=== PATIENT | male | born 1940 | race Caucasian/White ===

== ENCOUNTER 2016-09-06 09:50 | Emergency (ER) | payer MEDICARE, OTHER ==
[~2016-09-06 09:50] MED LIST: HYDR200T42 PO; NAPR-503 PO; PARO20TA PO; PRED5TAB PO
[2016-09-06] MEDS ORDERED: MORPHINE SULFATE 4 MG/ML INJ IV PUSH ONE (10:00)
[2016-09-06] MEDS ORDERED: RESP: ALBUTEROL 2.5 MG/IPRATROPIUM 0.5 MG NEB (SCH) NEB ONE (10:00)
[2016-09-06] MEDS ORDERED: LORazepam 2 MG/ML VIAL IV PUSH ONE (10:00)
[2016-09-06] MEDS ORDERED: methylPREDNISolone SOD SUCC 125 MG/2 ML VIAL IV PUSH ONE (10:00)
--- NOTE | 2016-09-06 10:07 | PD ---
HPI Chief Complaint: GI Complaint Time Seen by Provider: 09:59 Travel History International Travel<30 days: No Contact w/Intl Traveler<30days: No History of Present Illness HPI This is a 76-year-old male with a history of non-small cell lung cancer currently on hospice care, presenting to the emergency department with increasing cough with productive sputum and some blood that started this morning. He's been increasingly short of breath, constant, severe, associated with green foul-smelling sputum with some blood in it. His reports that over the past weeks his whole room is started to smell. She says she thought he was choking on his sputum this morning. He called his hospice nurse and they told her to give him some Ativan and some breathing treatments. She tried that but he didn't get any better so she brought him to the emergency department. 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) Neurologic: No Psychiatric: No Reproductive: No Respiratory: No Thyroid Disease: No Past Surgical History Abdominal Surgery: Yes (hernia repair) AICD: No Cardiac Surgery: No Ear Surgery: No Endocrine Surgery: No Eye Surgery: Yes (RT CATARACT) Genitourinary Surgery: No Joint Replacement: No Oral Surgery: Yes (TONSILLECTOMY) Pacemaker: No Thoracic Surgery: No Social History Alcohol Use: No Tobacco Use: No Substance Use: No Allergies-Medications (Allergen,Severity, Reaction): Coded Allergies: No Known Allergies (Verified , 09/06/16) Reported Meds & Prescriptions Reported Meds & Active Scripts Active Active Prescriptions or Reported Medications Unobtainable Review of Systems ROS Limitations: Clinical Condition Physical Exam Narrative GENERAL: Frail, chronically ill-appearing SKIN: Dry with skin tenting HEAD: Atraumatic. Normocephalic. EYES: Pupils equal and round. No injection or drainage. ENT: Dry mucous membranes NECK: Trachea midline. CARDIOVASCULAR: Regular rate and rhythm. No murmur appreciated. RESPIRATORY: Coarse breath sounds bilaterally with a prolonged expiratory phase , mild tachypnea GASTROINTESTINAL: Abdomen soft, non-tender, nondistended. MUSCULOSKELETAL: No obvious deformities. NEUROLOGICAL: Awake and alert. No obvious cranial nerve deficits. Moving all extremities. PSYCHIATRIC: Appropriate mood and affect; insight and judgment normal. Data Data Last Documented VS Vital Signs Date Time Temp Pulse Resp B/P Pulse Ox O2 Delivery O2 Flow Rate FiO2 09/06/16 10:42 99.1 136 24 90/52 86 Nasal Cannula 2 Orders Methylprednisolone So Succ Inj (Solumedr (09/06/16 10:00) Albuterol-Ipratropium Neb (Duoneb Neb) (09/06/16 10:00) Lorazepam Inj (Ativan Inj) (09/06/16 10:00) Morphine Inj (Morphine Inj) (09/06/16 10:00) Albuterol-Ipratropium Neb (Duoneb Neb) (09/06/16 10:30) Chest, Single Ap (09/06/16 ) Lidocaine Pf 2% Neb (Lidocaine Pf 2% Neb (09/06/16 10:45) MDM Medical Decision Making Medical Screen Exam Complete: Yes Emergency Medical Condition: Yes Medical Record Reviewed: Yes (patient has a history of non-small cell lung cancer and is currently on hospice care) Interpretation(s) Temperature is 99.1 Tachycardic, tachypneic, hypoxic Chest x-ray: Bibasilar patchiness unresponsive with atelectasis or pneumonia, cavitary lesion with small fluid level Differential Diagnosis Cancer, pulmonary embolism, pneumonia, pleural effusion, pneumothorax Narrative Course This is a 76-year-old male who presents to the emergency department with a history of non-small cell lung cancer currently on hospice care. Patient has had increasing shortness of breath and purulent sputum production. The patient' s port was accessed. I discussed with the patient and his family that there goals are primarily comfort care. Chest x-ray demonstrates a cavitary lesion in the right upper lung with a fluid level which I suspect is related to the patient's cancer and is likely the source of his increasing sputum production. I had a conversation with the family. This will be difficult to treat especially in the setting of the patient's underlying malignancy. They reiterated that there goals are comfort. Patient was given morphine, Ativan, steroids and bronchodilators and he appears much more comfortable on reassessment. The hospice physician came to the emergency department and evaluated the patient and offered the patient a bed in the [facility]. I had several [id number] conversations with the family. The patient is very adamant that he wants to go home. Hospice reports they are unable to provide 24-hour nursing care at home and can only do so in the care center. Family still wants to take the patient home. We informed the hospice agency that the family will be transporting the patient home. Critical Care Narrative Aggregate critical care time was 35 minutes. Time to perform other separately billable procedures was not included in the critical care time. My time did not include minutes spent treating any other patients simultaneously or on activities that did not directly contribute to the patient's treatment. The services I provided to this patient were to treat and/or prevent clinically significant deterioration that could result in: Disability, I provided critical care services requiring my management, as noted below: Chart data review, documentation time, medication orders and management, vital sign assessments/reviewing monitor data, ordering and reviewing lab tests, ordering and interpreting/reviewing x-rays and diagnostic studies, care of the patient and discussion of the patient with the admitting physicians. Engaged in goals of care discussions with both family members and hospice agency Diagnosis Primary Impression: Lung cancer Qualified Code: C34.11 - Malignant neoplasm of upper lobe of right lung Patient Instructions: General Instructions Med/Other Pt SpecificInfo: Prescription(s) given Scripts Levofloxacin (Levaquin)750 Mg Plu292 Mg PO DAILY #7 TAB Ref 0 Prov:Meryl Gastelum MD 09/06/16 Clindamycin 300 Mg Xak615 Mg PO TID #21 CAP Prov:Meryl Gastelum MD 09/06/16 Disposition: 01 DISCHARGE HOME Condition: Stable Meryl Gastelum MD September 06, 2016 10:07
[2016-09-06 10:09] VITALS: BP 92/56; PULSE 144; RESP 24; TEMP 99.1; O2SAT 85
[2016-09-06 10:10] VITALS: O2SAT 100
[2016-09-06] MEDS: RESP: ALBUTEROL 2.5 MG/IPRATROPIUM 0.5 MG NEB (SCH) INH (10:29)
[2016-09-06 10:42] VITALS: BP 90/52; PULSE 136; RESP 24; TEMP 99.1; O2SAT 86
[2016-09-06] MEDS ORDERED: RESP: LIDOCAINE HCL 2% 2 ML NEB NEB ONE (10:45)
[2016-09-06 11:45] VITALS: BP 91/53; PULSE 130; RESP 22; O2SAT 88
--- NOTE | 2016-09-06 11:49 | RADHPO ---
EXAM DATE/TIME: 09/06/2016 10:53 [facility] COMPARISON: CHEST EXPIRATION ONLY, November 25, 2014, 12:58. INDICATIONS : Short of breath, coughing up blood. MEDICAL HISTORY : Carcinoma, lung. Radiation, chemotherapy SURGICAL HISTORY : Infusaport ENCOUNTER: Initial ACUITY: 2 days PAIN SCORE: 0/10 LOCATION: Bilateral chest FINDINGS: Bibasilar patchy infiltrates are noted consistent with atelectasis and/or pneumonia. Clinical correl ation is recommended. There is apparent cavitary lesion within the right apex with small fluid level . A right internal jugular [id number] has its tip in the superior vena cava. The heart is stable . CONCLUSION: 1. Bibasilar patchiness consistent with atelectasis and/or pneumonia. Clinical correlation is recom mended. 2. Cavitary lesion within the right apex with small fluid level which is indeterminate. Jeffrey Wilder MD on September 06, 2016 at 11:43 Board Certified Radiologist. This report was verified electronically.
[2016-09-06 12:45] VITALS: BP 103/61; PULSE 124; RESP 20; O2SAT 88
[2016-09-06] MEDS ORDERED: CLIN1CAP6 PO (13:19)
[2016-09-06] MEDS ORDERED: LEVA750T PO (13:19)
[2016-09-06] MEDS ORDERED: PRED20 PO (13:37)
== END 2016-09-06 14:00 | disposition home or self-care (01) ==
LOC: PHED 09:50
DX: C34.11 Malignant neoplasm of upper lobe, right bronchus or lung (principal); R06.02 Shortness of breath; B15.9 Hepatitis A without hepatic coma
CPT/HCPCS: 71010; 94640; 94664; 96374; 96375; 99285; J1642; J2060; J2270; J2930